=== PATIENT | male | born 1995 | race Caucasian/White ===

== ENCOUNTER 2018-06-29 11:22 | Emergency (ER) | payer OTHER ==
[2018-06-29] MEDS ORDERED: Tetan/Diph/Pertus SYR(Tdap)* 0.5 ML SYR(BOOSTRIX) use SYR IM ONE (12:01)
[2018-06-29] MEDS ORDERED: Lidocaine 1%* 5 ML VIAL INJ ONE (12:01)
[2018-06-29 13:29] VITALS: BP 140/70
--- NOTE | 2018-06-29 15:54 | ED ---
Laceration/Wound HPI - HPI Summary HPI Summary: Patient is a 23-year-old male who presents emergency department for a laceration to his eyebrow that occurred just prior to arrival. Patient states he was at work cutting up brush when a branch came back and hit him above his left eye. Patient states branch was fairly small in diameter. He did not get thrown backwards or have a head injury. Patient denies loss of consciousness. He denies vision changes, neck pain. He is no past medical history. He is unaware of his last tetanus immunization. Symptoms are mild in severity. No current modifying factors. - History of Current Complaint Stated Complaint: FACIAL LAC Time Seen by Provider: 06/29/18 11:58 Hx Obtained From: Patient Pain Intensity: 0 - Allergy/Home Medications Allergies/Adverse Reactions: Allergies Allergy/AdvReac Type Severity Reaction Status Date / Time No Known Allergies Allergy Verified 06/29/18 11:38 Home Medications: Home Medications NK [No Home Medications Reported] 06/29/18 [History Confirmed 06/29/18] PMH/Surg Hx/FS Hx/Imm Hx Previously Healthy: Yes Infectious Disease History: No Infectious Disease History: Denies: Traveled Outside the [place] in Last 30 Days - Family History Known Family History: Positive: Other - noncontributory - Social History Occupation: Employed Full-time Lives: With Family Alcohol Use: Occasionally Substance Use Type: Reports: None Smoking Status (MU): Never Smoked Tobacco Review of Systems Eyes: Negative Negative: Photophobia, Blurred Vision, Diplopia, Drainage, Erythema ENT: Negative Negative: Epistaxis Musculoskeletal: Negative Positive: Other - laceration left eyebrow Neurological: Negative Negative: Headache All Other Systems Reviewed And Are Negative: Yes Physical Exam Triage Information Reviewed: Yes Vital Signs On Initial Exam: Initial Vitals Temp Pulse Resp BP Pulse Ox 98.6 F 85 18 151/77 100 06/29/18 11:32 06/29/18 11:32 06/29/18 11:32 06/29/18 11:32 06/29/18 11:32 Vital Signs Reviewed: Yes Appearance: Positive: Well-Appearing - Pt. lying on bed in NAD. Skin: Positive: Warm, Dry Head/Face: Positive: Other - 2cm full thickness laceration noted to through the lateral aspect of the left eyebrow. No surrounding edema or ecchymosis. Eyes: Positive: Normal, EOMI, ALLY, Conjunctiva Clear Neck: Positive: Supple Neurological: Positive: Normal, CN Intact II-III Psychiatric: Positive: Affect/Mood Appropriate - Dimple Coma Scale Best Eye Response: 4 - Spontaneous Best Motor Response: 6 - Obeys Commands Best Verbal Response: 5 - Oriented Coma Scale Total: 15 Procedures - Laceration/Wound Repair 1 Location: face Description: Linear Anesthesia: 1.0% Length, Depth and Shape: 2cm linear full thickness Betadine Prep?: No - hibiclens Laceration/Wound Explored: clean Closure: Single Layer Suture Type: Nylon - 5-0 Number of Sutures: 3 Layer Closure?: No Sterile Dressing Applied?: No Diagnostics - Vital Signs Vital Signs Temp Pulse Resp BP Pulse Ox 06/29/18 13:28 98.2 F 80 18 140/70 100 06/29/18 11:32 98.6 F 85 18 151/77 100 - Laboratory Lab Statement: Any lab studies that have been ordered have been reviewed, and results considered in the medical decision making process. Laceration Repair Course/Dx - Course Course Of Treatment: Patient presenting for a simple facial laceration. Laceration was repaired as noted above. Tetanus was updated. Advised patient suture removal in 5 days. Keep wound clean and dry. Motrin of Tylenol for pain as directed. Apply ice intermittently. Return to the ER for redness, swelling or drainage or new symptoms. Patient understands and agrees with plan. - Differential Dx Differental Diagnoses: Laceration - Clinical Impression Provider Diagnoses: Facial laceration Discharge - Sign-Out/Discharge Documenting (check all that apply): Patient Departure - Discharge Plan Condition: Good Disposition: HOME Patient Education Materials: Care For Your Stitches (ED), Laceration (ED) Referrals: [facility] [Outside] Additional Instructions: Suture removal in 5 days Keep wound clean and dry Cover if you are going to be working outside Ice intermittently Tylenol or Motrin for pain as directed Return to ER for redness, swelling or drainage from wound - Billing Disposition and Condition Condition: GOOD Disposition: Home
== END 2018-06-29 13:28 | disposition home or self-care (01) ==
LOC: ED 11:22
DX: S01.112A Laceration without foreign body of left eyelid and periocular area, initial encounter (principal); W22.8XXA Striking against or struck by other objects, initial encounter; Y93.H9 Activity, other involving exterior property and land maintenance, building and construction; Y92.9 Unspecified place or not applicable; Y99.0 Civilian activity done for income or pay; Z23 Encounter for immunization
CPT/HCPCS: 12011; 90471; 90715; 99281